=== PATIENT | female | born 1985 | race Caucasian/White ===

== ENCOUNTER 2019-11-15 20:58 | Emergency (ER) | payer BC, OTHER ==
--- NOTE | 2019-11-15 21:02 | PDOC ---
Rapid Medical Evaluation Time Seen by Provider: 11/15/19 20:59 Medical Evaluation: 11/15/19 20:59 I have performed a brief in-person evaluation of this patient. The patient presents with a chief complaint of: sore throat and congestion since tuesday Pertinent physical exam findings: post nasal drip, nasal congestion I have ordered the following: nothing The patient will proceed to the ED for further evaluation. Discharge Disposition - Diagnosis URI (upper respiratory infection) - Referrals - Patient Instructions - Post Discharge Activity
[2019-11-15 21:03] VITALS: BP 144/87; PULSE 88; TEMP 97.9; BMI 29.2
--- NOTE | 2019-11-15 21:57 | PDOC ---
History of Present Illness - General Chief Complaint: Sore Throat Stated Complaint: SORE THROAT Time Seen by Provider: 11/15/19 20:59 History Source: Patient Exam Limitations: Clinical Condition - History of Present Illness Initial Comments: 11/15/19 21:55 Patient 19.5 weeks with no significant past medical history present with complaint of 5-day history of sore throat, nasal congestion runny nose with intermittent cough. Denies fever, chill, nausea, vomiting, abdominal pain. Reported painful to swallow. Denies diarrhea or constipation. Patient has not taken anything for symptoms. Denies recent travel Is this a multiple visit Asthma Patient?: No Past History - Past Medical History Allergies/Adverse Reactions: Allergies Allergy/AdvReac Type Severity Reaction Status Date / Time No Known Allergies Allergy Verified 11/15/19 21:03 Home Medications: Ambulatory Orders Ipratropium [place] 2 spray NS BID PRN 5 Days #1 spray 11/15/19 COPD: No HTN: Yes - Psycho Social/Smoking Cessation Hx Smoking History: Never smoked Review of Systems - Review of Systems Able to Perform ROS?: Yes Is the patient limited [place]ian proficient: No Constitutional: No: Chills, Fever, Malaise HEENTM: Yes: Symptoms Reported, See HPI, Nose Congestion, Throat Pain, Difficulty Swallowing. No: Eye Pain, Blurred Vision, Tearing, Recent change in vision, Double Vision, Cataracts, Ear Pain, Ocular Prothesis, Ear Discharge, Nose Pain, Tinnitus, Nose Bleeding, Hearing Loss, Throat Swelling, Mouth Pain, Dental Problems, Mouth Swelling, Other Respiratory: Yes: Symptoms reported, See HPI, Cough (intermittent). No: Orthopnea, Shortness of Breath, SOB with Exertion, SOB at Rest, Stridor, Wheezing, Productive cough, Hemoptysis, Other Cardiac (ROS): No: Symptoms Reported, See HPI, Chest Pain, Edema, Irregular Heart Rate, Lightheadedness, Palpitations, Syncope, Chest Tightness, Other ABD/GI: No: Symptoms Reported, See HPI, Constipated, Diarrhea, Nausea, Vomiting, Abdominal cramping Musculoskeletal: No: Symptoms Reported All Other Systems: Reviewed and Negative *Physical Exam - Vital Signs Last Vital Signs Temp Pulse Resp BP Pulse Ox 97.9 F 88 18 144/87 100 11/15/19 21:01 11/15/19 21:01 11/15/19 21:01 11/15/19 21:01 11/15/19 21:01 - Physical Exam 11/15/19 21:57 GENERAL: Well developed, well nourished. Awake and alert. No acute distress. HEENT: Normocephalic, atraumatic. PERRLA, EOMI. No conjunctival pallor. Sclera are non-icteric. Moist mucous membranes. Oropharynx is clear. NECK: Supple. Full ROM. CARDIOVASCULAR: Regular rate and rhythm. No murmurs, rubs, or gallops. Distal pulses are 2+ and symmetric. PULMONARY: No evidence of respiratory distress. Lungs clear to auscultation bilaterally. No wheezing, rales or rhonchi. ABDOMINAL: Soft. Non-tender. 20 weeks gravid abdomen. No rebound or guarding. No organomegaly. Normoactive bowel sounds. MUSCULOSKELETAL Normal range of motion at all joints. SKIN: Warm and dry. Normal capillary refill. No rashes. No cyanosis. NEUROLOGICAL: Alert, awake, appropriate. Gait is normal without ataxia. PSYCHIATRIC: Cooperative. Good eye contact. Appropriate mood General Appearance: Yes: Nourished, Appropriately Dressed. No: Apparent Distress Medical Decision Making - Medical Decision Making 11/15/19 21:55 Patient 19.5 weeks with no significant past medical history present with complaint of 5-day history of sore throat, nasal congestion runny nose with intermittent cough. Denies fever, chill, nausea, vomiting, abdominal pain. Reported painful to swallow. Denies diarrhea or constipation. Patient has not taken anything for symptoms. Denies recent travel Exam significant for bilateral nasal congestion otherwise unremarkable exam. No pharyngeal erythema. Lungs clear to auscultation bilateral. Patient afebrile. Patient in no acute distress. Patient symptoms likely nasal congestion with postnasal drip causing pharyngitis versus less likely strep pharyngitis. Rapid strep ordered to rule out strep pharyngitis 11/15/19 22:38 Rapid strep is negative. Patient symptoms likely caused by viral URI with phar yngitis. Patient stable for discharge on Atrovent nasal spray for nasal congestion with advised to increase fluid intake as she cannot be taking many medication due to. Patient advised to follow-up with PCP Discharge - Discharge Information Problems reviewed: Yes Clinical Impression/Diagnosis: URI (upper respiratory infection) Qualifiers: URI type: unspecified viral URI Qualified Code(s): J06.9 - Acute upper respiratory infection, unspecified Pharyngitis Qualifiers: Pharyngitis/tonsillitis etiology: unspecified etiology Qualified Code(s): J02.9 - Acute pharyngitis, unspecified Condition: Stable Disposition: HOME - Admission No - Additional Discharge Information Prescriptions: Ipratropium [place] 2 spray NS BID PRN 5 Days #1 spray PRN Reason: nasal congestion - Follow up/Referral Referrals: Ayse Le MD [Primary Care Provider] - - Patient Discharge Instructions Patient Printed Discharge Instructions: DI for Sinusitis, DI for Viral Pharyngitis Additional Instructions: Strep test is negative. Symptoms likely caused by postnasal drip irritating throat. Take prescribed medication as prescribed for symptoms. Increase fluid intake. Follow-up with primary care - Post Discharge Activity
== END 2019-11-15 22:39 | disposition home or self-care (01) ==
LOC: JERFT 20:58
DX: J02.9 Acute pharyngitis, unspecified (principal); J06.9 Acute upper respiratory infection, unspecified; B97.89 Other viral agents as the cause of diseases classified elsewhere
CPT/HCPCS: 87070; 87880; 99281-25